=== PATIENT | male | born 1990 | race African-American/Black ===

== ENCOUNTER 2017-08-31 02:02 | Emergency (ER) | payer OTHER, MEDICAID ==
[~2017-08-31] VITALS: Ht 175.3 cm; Wt 62.6 kg
[2017-08-31 02:30] LABS: HEMATOCRIT 44.4 % (42.0-52.0); HEMOGLOBIN 14.7 gm/dL (14.0-18.0); MCH 29.3 pg (26.0-34.0); MCHC 33.1 g/dL (28.0-37.0); MCV 88.4 fL (80.0-100.0); MPV 7.9 fl. (7.2-11.1); NUCLEATED RBCS 0 /100WBC; PLATELET COUNT* 233 thou/uL (150-400); RBC 5.03 mil/uL (4.50-6.00); RDW-CV 14.9 % (10.5-14.5); WBC 6.9 thou/uL (4.0-11.0)
[2017-08-31 02:35] LABS: ANION GAP 7 mmol/L (7-16); BUN 15 mg/dL (7-18); CALCIUM 9.1 mg/dL (8.5-10.1); CHLORIDE 102 mmol/L (98-107); CO2 28 mmol/L (21-32); CREATININE 1.5 mg/dL (0.6-1.3); GLUCOSE 119 mg/dL (70-99); POTASSIUM 3.8 mmol/L (3.5-5.1); SODIUM 137 mmol/L (136-145)
[2017-08-31 02:41] LABS: ALBUMIN 3.8 g/dL (3.4-5.0); ALKALINE PHOSPHATASE 74 U/L (46-116); LIPASE 193 U/L (73-393); SGOT 18 U/L (15-37); SGPT 19 U/L (30-65); TOTAL BILIRUBIN 1.2 mg/dL (<0.1-1.0); TOTAL PROTEIN 7.4 g/dL (6.4-8.2); TROPONIN-I LEVEL <0.06 ng/mL (<0.06)
[2017-08-31 05:19] VITALS: BP 122/69
[2017-08-31 05:23] LABS: ABSOLUTE LYMPHOCYTES 5.1 thou/uL (0.8-5.3); ABSOLUTE MONOCYTES 0.5 thou/uL (0.0-1.2); ABSOLUTE NEUTROPHILS 1.3 thou/uL (1.6-8.1); ANISOCYTOSIS Occasional; ATYPICAL LYMPHS 2 %; HYPOCHROMASIA 1+; PLATELET ESTIMATE ADEQUATE
--- NOTE | 2017-09-02 11:11 | EKG ---
[place] [address] ELECTROCARDIOGRAM REPORT Name: MARGIE MARTELL Room: [facility] Katie#: [id number] Admission: 08/31/17 Attend Phys: Discharge: 08/31/17 Date of : [birth year] Report #: [id number] THIS REPORT FOR: //name// [facility] ED Test Date: 2017-08-31 Test Time: 02:15:26 Pat Name: ALEXANDRA MARTELL Department: Room: Gender: M Leasing Professional: MARYBETH : 1990 Requested By: Sweetie London Order Number: [id number] MD: Servando Cruz Measurements Intervals [place] Rate: 52 P: 0 ME: 203 QRS: 87 QRSD: 92 T: 50 QT: 395 QTc: 368 Interpretive Statements Sinus rhythm Atrial premature complexes No previous ECG available for comparison Electronically Signed On 09-02-2017 11:11:30 CDT by Servando Cruz [email or web address] <ELECTRONICALLY SIGNED> By: Servando Cruz MD, [facility] 09/02/17 1111 0215 0215 Servando Cruz MD, FACC /EPI
== END 2017-08-31 05:20 | disposition home or self-care (01) ==
LOC: M.ERS 02:02
PROVIDERS: Emergency Medicine
DX: R16.0 Hepatomegaly, not elsewhere classified (principal); R19.7 Diarrhea, unspecified; F10.10 Alcohol abuse, uncomplicated; F14.10 Cocaine abuse, uncomplicated

== ENCOUNTER 2020-04-28 11:53 | Emergency (ER) | payer OTHER ==
[~2020-04-28] VITALS: Ht 175.3 cm; Wt 63.5 kg
[2020-04-28] MEDS ORDERED: HYDROCODON-ACE1 EAC7 PO (13:41)
[2020-04-28 15:42] VITALS: BP 109/72
== END 2020-04-28 15:43 | disposition home or self-care (01) ==
LOC: M.ERS 11:53
DX: S62.326A Displaced fracture of shaft of fifth metacarpal bone, right hand, initial encounter for closed fracture (principal); W22.01XA Walked into wall, initial encounter; Y93.89 Activity, other specified; Y92.89 Other specified places as the place of occurrence of the external cause; Y99.8 Other external cause status